=== PATIENT | male | born 1990 | race Caucasian/White ===

== ENCOUNTER 2020-07-07 17:32 | Inpatient (IN) | payer MEDICAID ==
[~2020-07-07] VITALS: Ht 182.9 cm; Wt 83.0 kg
[2020-07-07] MEDS ORDERED: HydrOXYzine PAMOATE 50 MG CAPSULE PO PRN (18:00)
[2020-07-07] MEDS ORDERED: MAGNESIUM HYDROXIDE SUSPENSION 30 ML UDCUP PO PRN (18:00)
[2020-07-07] MEDS ORDERED: ACETAMINOPHEN 325 MG TABLET PO PRN (18:00)
[2020-07-07] MEDS ORDERED: PROMETHAZINE HCL 25 MG TABLET PO PRN (18:00)
[2020-07-07] MEDS ORDERED: MAG HYDROX/AL HYDROX/SIMETH ES 30 ML SUSPENSION UDCUP PO PRN (18:00)
[2020-07-07] MEDS ORDERED: GuaiFENesin/D-METHORPHAN [SUGAR-FREE] 200-20MG/10 ML SYRUP UDCUP PO PRN (18:00)
[2020-07-07] MEDS ORDERED: OLANZapine 5 MG RAPDIS TABLET PO PRN (18:00)
[2020-07-07] MEDS ORDERED: LORazepam 2 MG TABLET PO PRN (18:00)
[2020-07-07] MEDS ORDERED: TUBERCULIN, PURIFIED PROTEIN DERIVATIVE 5 TU/0.1 ML SYRINGE ID ONE (18:00)
[2020-07-07] MEDS ORDERED: LOPERAMIDE HCL 2 MG CAPSULE PO PRN (18:00)
[2020-07-08] MEDS ORDERED: TRAZ-252 PO (17:06)
[2020-07-08 18:24] VITALS: BP 150/78
[2020-07-08] MEDS ORDERED: PNEUMOCOCCAL VACCINE POLYVALENT 0.5 ML VIAL [PPSV23] IM ONE (18:45)
[2020-07-08] MEDS: THIAMINE 100 MG TABLET PO SCH ×2 (20:13→20:21)
[2020-07-08] MEDS: OMEGA-3/DHA/EPA/FISH OIL 1,000 MG CAPSULE PO SCH (20:13)
[2020-07-08] MEDS: FOLIC ACID 1 MG TABLET PO SCH (20:13)
[2020-07-08] MEDS: MULTIVITAMINS WITH MINERALS, THERAPEUTIC TABLET PO SCH (20:13)
[2020-07-08] MEDS: FLUoxetine HCL 20 MG CAPSULE PO SCH (20:13)
[2020-07-08] MEDS: ACAMPROSATE CALCIUM 333 MG DR TABLET PO SCH (20:14)
[2020-07-08] MEDS: ZOLPIDEM TARTRATE 10 MG TABLET PO PRN (22:05)
[2020-07-09 05:16] VITALS: BP 136/64
[2020-07-09 08:14] LABS: BASOPHILS % (AUTO) 0.3 % (0.0-2.0); EOSINOPHILS % (AUTO) 0.5 % (1.0-6.0); HEMATOCRIT 43.6 % (41-53); HEMOGLOBIN 14.4 g/dL (13.5-17.5); LYMPHOCYTES # (AUTO) 1.1 K/uL (1.0-4.8); LYMPHOCYTES % (AUTO) 21.2 % (22.0-44.0); MEAN CORPUSCULAR HEMOGLOBIN 28.6 pg (26.0-34.0); MEAN CORPUSCULAR VOLUME 87 fL (80-100); MONOCYTES # (AUTO) 0.3 K/uL (0.1-1.0); MONOCYTES % (AUTO) 6.8 % (2.0-9.0); NEUTROPHILS # (AUTO) 3.6 K/uL (1.8-7.7); NEUTROPHILS % (AUTO) 71.2 % (40.0-70.0); PLATELET COUNT (AUTO) 177 K/uL (150-450); RED BLOOD CELL COUNT(AUTO) 5.03 MIL/uL (4.50-5.90); RED CELL DISTRIBUTION WIDTH 13.8 % (11.5-14.5)
[2020-07-09 08:22] VITALS: BP 137/65
[2020-07-09 08:33] LABS: HEMOGLOBIN A1C 5.6 % (3.8-5.6)
[2020-07-09] MEDS: FLUoxetine HCL 20 MG CAPSULE PO SCH (08:39)
[2020-07-09] MEDS: OMEGA-3/DHA/EPA/FISH OIL 1,000 MG CAPSULE PO SCH (08:39)
[2020-07-09] MEDS: FOLIC ACID 1 MG TABLET PO SCH (08:39)
[2020-07-09] MEDS: ACAMPROSATE CALCIUM 333 MG DR TABLET PO SCH ×2 (08:39→13:57)
[2020-07-09] MEDS: THIAMINE 100 MG TABLET PO SCH ×2 (08:39→16:22)
[2020-07-09] MEDS: MULTIVITAMINS WITH MINERALS, THERAPEUTIC TABLET PO SCH (08:40)
[2020-07-09 08:50] LABS: ALANINE AMINOTRANSFERASE 25 U/L (12-78); ALBUMIN 4.2 g/dL (3.4-5.0); ALKALINE PHOSPHATASE 63 U/L (46-116); ANION GAP 8 mmol/L (8-16); ASPARTATE AMINOTRANSFERASE 17 U/L (15-37); BILIRUBIN,TOTAL 0.7 mg/dL (0.1-1.0); CALCIUM, TOTAL 9.3 mg/dL (8.8-10.5); CARBON DIOXIDE 30 mmol/L (22-29); CHLORIDE 102 mmol/L (98-107); CHOL/HDL RATIO 5.2 (4.2-7.3); CHOLESTEROL 191 mg/dL (131-200); CREATININE 1.12 mg/dL (0.60-1.30); FREE T4 (FREE THYROXINE) 1.29 ng/dL (0.76-1.46); GLOMERULAR FILTR. RATE CALC > 60 mL/min (>60); GLUCOSE,RANDOM 104 mg/dL (70-110); HDL CHOLESTEROL 37 mg/dL (40-60); LDL CHOL (CALC.) 138 mg/dL (0-130); SODIUM SERUM 140 mmol/L (136-145); THYROID STIMULATING HORMONE 0.76 uIU/mL (0.36-3.74); TOTAL PROTEIN, SERUM 6.8 g/dL (6.4-8.2); TRIGLYCERIDES 82 mg/dL (15-150); UREA NITROGEN, BLOOD 12 mg/dL (7-18)
[2020-07-09] MEDS ORDERED: OMEG-135 PO (15:21)
[2020-07-09] MEDS ORDERED: VENL-67 PO (15:21)
[2020-07-09] MEDS ORDERED: NALT50TA PO (15:21)
[2020-07-09 16:02] VITALS: BP 137/81
[2020-07-09] MEDS: ZOLPIDEM TARTRATE 10 MG TABLET PO PRN (21:14)
[2020-07-10 03:59] VITALS: BP 140/98
[2020-07-10] MEDS: MULTIVITAMINS WITH MINERALS, THERAPEUTIC TABLET PO SCH (08:24)
[2020-07-10] MEDS: FOLIC ACID 1 MG TABLET PO SCH (08:24)
[2020-07-10] MEDS: OMEGA-3/DHA/EPA/FISH OIL 1,000 MG CAPSULE PO SCH (08:24)
[2020-07-10] MEDS: THIAMINE 100 MG TABLET PO SCH (08:25)
[2020-07-10 08:45] VITALS: BP 137/86
[2020-07-10] MEDS ORDERED: NALTREXONE HCL 50 MG TABLET PO SCH (09:00)
[2020-07-10] MEDS ORDERED: VENLAFAXINE HCL 75 MG ER CAPSULE PO SCH (09:00)
== END 2020-07-10 11:15 | disposition home or self-care (01) | DRG 751 ==
LOC: B2S 07-08 17:42
PROVIDERS: ADMIT Psychiatry & Neurology Psychiatry; ATTEND Psychiatry & Neurology Psychiatry
DX: F33.2 Major depressive disorder, recurrent severe without psychotic features (principal); R45.851 Suicidal ideations; J45.909 Unspecified asthma, uncomplicated; G93.41 Metabolic encephalopathy; Z88.1 Allergy status to other antibiotic agents; Z79.899 Other long term (current) drug therapy
CPT/HCPCS: 83036; 84439; 84443; 86592; 87081; 90732